=== PATIENT | female | born 1965 | race Caucasian/White ===

== ENCOUNTER 2019-10-26 21:54 | Observation (INO) | payer BC ==
[~2019-10-26] VITALS: Ht 157.5 cm; Wt 76.7 kg
[2019-10-26 22:01] VITALS: BP 137/78
[2019-10-26 22:24] LABS: ABSOLUTE BASOPHILS 0.1 thou/uL (0.0-0.2); ABSOLUTE EOSINOPHILS 0.7 thou/uL (0.0-0.7); ABSOLUTE MONOCYTES 0.6 thou/uL (0.0-1.2); ABSOLUTE NEUTROPHILS 7.5 thou/uL (1.6-8.1); BASOPHILS 0.7 %; EOSINOPHILS 6.6 %; HEMOGLOBIN 13.2 gm/dL (12.0-15.0); LYMPHOCYTES 18.2 %; MCH 31.8 pg (26.0-34.0); MCHC 34.7 g/dL (28.0-37.0); MCV 91.7 fL (80.0-100.0); MONOCYTES 5.3 %; MPV 7.7 fl. (7.2-11.1); NUCLEATED RBCS 0 /100WBC; PLATELET COUNT* 398 thou/uL (150-400); POLYS 69.2 %; RBC 4.15 mil/uL (4.20-5.00); RDW-CV 13.3 % (10.5-14.5); WBC 10.8 thou/uL (4.0-11.0)
[2019-10-26 22:29] LABS: CALCIUM 8.5 mg/dL (8.5-10.1); CREATININE 0.8 mg/dL (0.6-1.3); POTASSIUM 3.6 mmol/L (3.5-5.1)
[2019-10-26 22:32] LABS: PROTIME 10.7 Seconds (9.20-11.50)
[2019-10-26 22:35] LABS: ALBUMIN 3.1 g/dL (3.4-5.0); TOTAL BILIRUBIN 0.2 mg/dL (<0.1-1.0); TOTAL PROTEIN 6.2 g/dL (6.4-8.2)
[2019-10-27] VITALS (15 sets, daily range): BP systolic 118–147; BP diastolic 45–86
[2019-10-27] MEDS ORDERED: CLARITIN10 M3 PO (05:38)
[2019-10-27] MEDS ORDERED: ADVIL200 M1 PO (05:39)
[2019-10-27] MEDS ORDERED: IBUPROFEN 200200 M1 PO (05:40)
[2019-10-27] MEDS ORDERED: [UNRECOGNIZED DRUG - OTHER] (05:40)
[2019-10-27 08:54] LABS: CHOLESTEROL 170 mg/dL (<200); HDL CHOLESTEROL 41 mg/dL (>40); LDL CHOLESTEROL 108 mg/dL (<100); SERUM ASSESSMENT Clear; TC:HDL 4.1 Ratio (Not establshd); TRIGLYCERIDE 107 mg/dL (<150); VLDL 21 mg/dL (<40)
--- NOTE | 2019-10-27 15:59 | 2DMMODE ---
[facility] [address] [place] [address] 2 D/M-MODE ECHOCARDIOGRAM Name: RIVER COLLADO Room: [address] M.R.#: [id number] Admission: 10/26/19 Attend Phys: Williams Parker, Discharge: Date of : 67 Date of Service: 10/27/19 1558 Report #: [id number] THIS REPORT FOR: cc: FAM - No family physician/PCP FAM - No family physician/PCP Keagan Soriano MD [facility] ~ APPROVED REPORT Study performed: 10/27/2019 13:24:00 EXAM: Comprehensive 2D, Doppler, and color-flow Echocardiogram Patient Location: In-Patient BSA: 1.78 HR: 51 bpm BP: 147/73 mmHg Other Information Study Quality: Fair Technically limited study due to inability to position patient. Indications Non STEMI Chest Pain Volumes Left Atrial Volume (Systole) LA ESV Index: 18.70 mL/m2 Left Ventricle The left ventricle is normal size. There is normal LV segmental wall motion. Mild to moderate concentric left ventricular hypertrophy. Left ventricular systolic function is normal. The left ventricular ejection fraction is within the normal range. LVEF is 55-60%. Right Ventricle The right ventricle is normal size. The right ventricular systolic function is normal. Atria Left atrium is mildly dilated. The right atrium size is normal. [facility] [address] [place] [address] 2 D/M-MODE ECHOCARDIOGRAM Name: RIVER COLLADO Room: [address]#: [id number] Admission: 10/26/19 Attend Phys: Williams Parker, Discharge: Date of : 67 Date of Service: 10/27/19 1558 Report #: [id number] Aortic Valve The aortic valve is normal in structure. No aortic regurgitation is present. There is no aortic valvular stenosis. Mitral Valve The mitral valve is normal in structure. Mild mitral regurgitation. No evidence of mitral valve stenosis. Tricuspid Valve The tricuspid valve is normal in structure. There is no tricuspid valve regurgitation noted. Pulmonic Valve The pulmonary valve is normal in structure. There is no pulmonic valvular regurgitation. Great Vessels The aortic root is normal in size. IVC is normal in size and collapses >50% with inspiration. Pericardium There is no pericardial effusion. <Conclusion> The left ventricle is normal size. Mild to moderate concentric left ventricular hypertrophy. Left ventricular systolic function is normal. The left ventricular ejection fraction is within the normal range. LVEF is 55-60%. The right ventricle is normal size. Left atrium is mildly dilated. The right atrium size is normal. The aortic valve is normal in structure. The mitral valve is normal in structure. Mild mitral regurgitation. The tricuspid valve is normal in structure. IVC is normal in size and collapses >50% with inspiration. There is no pericardial effusion. There is normal LV segmental wall motion. <ELECTRONICALLY SIGNED> By: Keagan Soriano MD, [facility] 10/27/19 1558 1558 1558 Keagan Soriano MD, FACC /INF
--- NOTE | 2019-10-27 19:18 | EKG ---
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
--- NOTE | 2019-10-27 19:18 | EKG ---
[place] [address] ELECTROCARDIOGRAM REPORT Name: RIVER COLLADO Room: [address]#: [id number] Admission: 10/26/19 Attend Phys: Williams Parker, Discharge: Date of : 67 Date of Service: 10/26/192200 Report #: [id number] THIS REPORT FOR: //name// [facility] ED Test Date: 2019-10-26 Test Time: 22:01:04 Pat Name: RIVER COLLADO Department: Room: 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 : 1965 Requested By: Karen Clifton Order Number: [id number] MD: Rajiv Gil Measurements Intervals [place] Rate: 59 P: 17 IA: 118 QRS: 2 QRSD: 76 T: -19 QT: 402 QTc: 399 Interpretive Statements Sinus rhythm Borderline short IA interval Low voltage, precordial leads Abnormal R-wave progression, late transition Nonspecific T abnormalities, diffuse leads No previous ECG available for comparison Electronically Signed On 10-27-2019 17:42:12 CDT by Rajiv Gil [email or web address] <ELECTRONICALLY SIGNED> By: Rajiv Gil MD, FAC 10/27/19 174 00 00 Rajiv Gil MD, FAC /EPI
[2019-10-28] VITALS: BP 132/76
[2019-10-28 02:06] LABS: GLYCOHEMOGLOBIN (HGB A1C) 6.1 % (4.8-5.6)
[2019-10-28 04:00] VITALS: BP 146/47
[2019-10-28 04:45] LABS: HEMATOCRIT 34.5 % (37.0-47.0); HEMOGLOBIN 12.1 gm/dL (12.0-15.0); MCH 32.3 pg (26.0-34.0); MCV 92.1 fL (80.0-100.0); MPV 7.7 fl. (7.2-11.1); RBC 3.74 mil/uL (4.20-5.00); RDW-CV 13.4 % (10.5-14.5); WBC 7.4 thou/uL (4.0-11.0)
[2019-10-28 04:51] LABS: ALBUMIN 2.8 g/dL (3.4-5.0); CALCIUM 7.8 mg/dL (8.5-10.1); CREATININE 0.6 mg/dL (0.6-1.3); MAGNESIUM 1.8 mg/dL (1.8-2.4); POTASSIUM 3.4 mmol/L (3.5-5.1); TOTAL BILIRUBIN 0.4 mg/dL (<0.1-1.0); TOTAL PROTEIN 5.5 g/dL (6.4-8.2)
[2019-10-28 05:04] LABS: TROPONIN-I LEVEL 13.21 ng/mL (<0.06)
[2019-10-28] MEDS ORDERED: ASPIRIN325 PO (07:37)
[2019-10-28] MEDS ORDERED: NITROGLYCERIN0.4 MG SUBLING (07:37)
[2019-10-28] MEDS ORDERED: LIPITOR 40 MG T40 M1 PO (07:37)
[2019-10-28] MEDS ORDERED: EFFIENT10 MG PO (07:37)
[2019-10-28 08:00] VITALS: BP 136/75
[2019-10-28] MEDS ORDERED: WELLBUTRIN SR100 MG PO (12:06)
[2019-10-28 12:07] VITALS: BP 164/77
[2019-10-28] MEDS ORDERED: ASPIR 8181 M1 PO (13:02)
[2019-10-28 13:28] VITALS: BP 147/73
--- NOTE | 2019-10-29 08:35 | EKG ---
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: : 1965 Requested By: Rajiv Gil Order Number: [id number] Reading MD: Rajiv Gil Measurements Intervals [place] Rate: 48 P: 37 [place]: 133 QRS: 25 QRSD: 53 T: -43 QT: 377 QTc: 337 Interpretive Statements Sinus bradycardia Ventricular premature complex Artifact in lead(s) I,II,III,aVR,aVL,aVF,V1,V2,V3,V4,V5,V6 Compared to ECG 10/27/2019 10:30:45 Ventricular premature complex(es) now present Myocardial infarct finding now present Electronically Signed On 10-29-2019 8:34:52 CDT by Rajiv Gil [email or web address] <ELECTRONICALLY SIGNED> By: Rajiv Gil MD, [facility] 10/29/19 0834 1358 1358 Rajiv Gil MD, [facility] /EPI
--- NOTE | 2019-10-29 08:57 | EKG ---
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 : 1965 Requested By: Rajiv Gil Order Number: [id number] Reading MD: Rajiv Gil Measurements Intervals [place] Rate: 51 P: 56 [place]: 123 QRS: 16 QRSD: 88 T: 46 QT: 444 QTc: 409 Interpretive Statements Sinus rhythm Compared to ECG 10/27/2019 13:58:38 Sinus bradycardia no longer present Ventricular premature complex(es) no longer present Myocardial infarct finding no longer present Electronically Signed On 10-29-2019 8:56:21 CDT by Rajiv Gil [email or web address] <ELECTRONICALLY SIGNED> By: Rajiv Gil MD, [facility] 10/29/19 0856 9 Rajiv Gil MD, [facility] /EPI
--- NOTE | 2019-10-29 11:03 | CARD ---
[facility] [address] [place] [address] CARDIAC CATH REPORT Name: RIVER COLLADO Wiliam Room: [address] Marla M.RSaqib#: [id number] Admission: 10/26/19 Attend Phys: Williams Parker MD Discharge: 10/28/19 Date of : 67 Report #: [id number] THIS REPORT FOR: //name// cc: KIMMY - No family physician/PCP FAM - No family physician/PCP ~ APPROVED REPORT Study performed: 10/27/2019 10:14:56 Patient Details Patient Status: In-Patient Room #: The patient is a 54 year-old female Event Personnel Rajiv Gil Tire Room Supervisor, Keagan Soriano Tool Honing Machine Set Up Operator, Joan Gregg RN RN, Williams Popeub, Mar Anderson RTR Monitor, Madeline To RTR Monitor Procedures Performed Art Access - R femoral artery, Left Heart Cath w/or w/o Coronaries LHC, DENISE Place w/wo Plasty Single OM , DENISE Place w/wo Plasty Single LAD , Hemostasis w/ Angioseal Indication Non-STEMI Risk Factors Hypercholesterolemia, Hypertension Admission/Lab Medications/Medications given during procedure Angiomax IV 11 ml, Angiomax Drip IV 26.86 ml per hr, Effient PO 60 mg Procedure Narrative The patient was brought urgently to the Cardiac Catheterization Laboratory and was prepped and draped in a sterile manner. The right femoral was infiltrated with 1% Lidocaine subcutaneous anesthesia. A 6F [place] sheath was inserted into the right femoral artery. Coronary angiography was performed using coronary diagnostic catheters. The right coronary system was accessed and visualized with a 6F JR4 catheter. The left coronary system was accessed and visualized with a 6F JL4 catheter. The left ventricle was accessed and visualized with a 6F Pigtail catheter. Left ventricular/Aortic Valve gradient assessed via catheter pullback. Left ventriculogram was performed in [place]CE projection. Pre-dem[place] [address] CARDIAC CATH REPORT Name: RIVER COLLADO Room: [address] M..#: [id number] Admission: 10/26/19 Attend Phys: Williams Parker MD Discharge: 10/28/19 Date of : 67 Report #: [id number] was performed . Closure device was deployed with a 6 Fr Angioseal STS. The patient tolerated the procedure well and there were no complications associated with the procedure. There was no hematoma. Intraoperative Conscious Sedation Sedation start time: 11:29 Case end Time: 12:20 Fentanyl 50 mcg Versed 2 mg Fluoro Time: 17.3 minutes Dose: DAP 130378 cGycm2 2435 mGy Contrast Type and Amount: Visipaque 390 ml Coronary Angiography The patient's coronary anatomy is right dominant. Diagnostic Cath Left Main 0% narrowing LAD 80% tubular proximal and mid LAD stenoses Circumflex 40% mid circumflex narrowing with 100% occlusion of the first marginal branch of the circumflex with prominent intraluminal thrombus noted Right Coronary Large dominant vessel with 30% proximal narrowing Left Ventriculography The left ventricle is normal in size with normal contractility. The left ventricular ejection fraction is estimated to be 60%. Left ventricular wall motion abnormalities are not present. There is no mitral insufficiency. Hemodynamics The aortic pressure is 135/61 mmHg with a mean of 90 mmHg. The left ventricular pressure is 134/6 mmHg with a mean of mmHg. The left ventricular end diastolic pressure is 12 mmHg. PCI Technique Lesion Anticoagulation was achieved with Angiomax. Patient was preloaded with Angiomax IV 11 ml. Percutaneous coronary intervention was performed on the first obtuse marginal branch segment. The lesion stenosis prior to intervention was 100% with ELINA 0 flow. A 6F XB LAD 3.5 Guide Catheter was used to engage the lm ostium. A BMW 190cm Interventional Guidewire was used to cross the lesion[place] [address] CARDIAC CATH REPORT Name: RIVER COLLADO Room: [address] Eileen#: [id number] Admission: 10/26/19 Attend Phys: Williams Parker MD Discharge: 10/28/19 Date of : 67 Report #: [id number] A Balloon catheter Mini Trek RX 2.0 X 12 was inserted and inflated up to 8.00atm for 6seconds. Additional Inflation: 8.00atm for 6seconds. Additional Inflation: 8.00atm for 6seconds. STENT DEPLOYMENT A drug-eluting stent [place] RX Stent 2.0X26mm was inserted and inflated up to 12.00atm for 6seconds. Additional Inflation: 12.00atm for 6seconds. Final angiography reveals 5 % stenosis with ELINA 3 flow. PCI Technique Lesion 2 Percutaneous Coronary Intervention was performed on the mid left anterior descending artery segment. Patient was preloaded with Angiomax IV 11 ml. The lesion stenosis prior to intervention was 80% with ELINA 3 flow. A 6F XB LAD 3.5 Guide Catheter was used to engage the lm ostium. A BMW 190cm Interventional Guidewire was used to cross the lesion. Balloon Dilation A Balloon catheter Euphora SC 2.5x15mm was inserted and inflated up to 10.00atm for 10seconds. Additional Inflation: 10.00atm for 5seconds. Additional Inflation: 10.00atm for 7seconds. Stent Deployment A drug-eluting stent [place] RX Stent 2.5X18mm was inserted and inflated up to 12.00atm for 5seconds. Additional Inflation: 12.00atm for 6seconds. Final angiography reveals 0 % stenosis with ELINA 3 flow. PCI Technique Lesion 3 Percutaneous Coronary Intervention was performed on the proximal left anterior descending artery segment. Patient was preloaded with Angiomax IV 11 ml. The lesion stenosis prior to intervention was 80% with ELINA 3 flow. A 6F XB LAD 3.5 Guide Catheter was used to engage the lm ostium. A BMW 190cm Interventional Guidewire was used to cross the lesion. Stent Deployment A drug-eluting stent [place] RX Stent 2.5X18mm was inserted and inflated up to 12.00atm for 9seconds. Additional Inflation: 15.00atm for 10seconds. Post Stent Deployment Balloon Dilation A Balloon catheter [place] Euphora 2.75x8 was inserted and inflated up to [facility] [address] [place] [address] CARDIAC CATH REPORT Name: RIVER COLLADO Room: [address] Marla Arellano#: [id number] Admission: 10/26/19 Attend Phys: Williams Parker MD Discharge: 10/28/19 Date of : 67 Report #: [id number] 22.00atm for 8seconds. Additional Inflation: 24.00atm for 9seconds. Additional Inflation: 26.00atm for 11seconds. Final angiography reveals 0 % stenosis with ELINA 3 flow. Conclusion 1. Significant coronary artery disease characterized by the following: A 80% tubular proximal and mid LAD stenosis B 40% narrowing narrowing of the midportion of the nondominant circumflex with 100% first marginal occlusion with prominent intraluminal thrombus C 30% narrowing the proximal portion of the large dominant right coronary artery 2. Normal left ventricular systolic function, estimated ejection fraction being 60% 3. Normal left-sided hemodynamic study 4. Successful PCI at the site of 100% first marginal occlusion with 0% residual narrowing and ELINA-3 flow to the distal vessel 5. Successful PCI with deployment of sequential drug-eluting stents at the sites of 80% tubular proximal and mid LAD stenosis with 0% residual narrowings and ELINA-3 flow to the distal vessel Recommendations Cardiac Risk Reduction Program Aggressive Medical Therapy Medications Administered Aspirin (any) Prasugrel Diagnostic Cath Approved by: Rajiv Gil MD Date/Time: 10/29/2019 11:00:58 <ELECTRONICALLY SIGNED> By: Keagan Soriano MD, [facility] 10/29/19 1102 1102 1102Joellen Soriano MD, FACC /INF
== END 2019-10-28 13:29 | disposition home or self-care (01) ==
LOC: M.ERS 21:54 → M.2W 23:12 → M.TBA-ER 23:12 → M.2W 10-27 00:16
PROVIDERS: Internal Medicine; Personal Emergency Response Attendant; ADMIT Internal Medicine; ATTEND Internal Medicine
DX: I21.4 Non-ST elevation (NSTEMI) myocardial infarction (principal); I25.110 Atherosclerotic heart disease of native coronary artery with unstable angina pectoris; E78.5 Hyperlipidemia, unspecified; E11.9 Type 2 diabetes mellitus without complications; F17.210 Nicotine dependence, cigarettes, uncomplicated; R65.10 Systemic inflammatory response syndrome (SIRS) of non-infectious origin without acute organ dysfunction

== ENCOUNTER 2020-02-21 20:29 | Observation (INO) | payer BC ==
[~2020-02-21] VITALS: Ht 157.5 cm; Wt 84.4 kg
[~2020-02-21 20:29] MED LIST: ADVIL200 M1 PO; ASPIR 8181 M1 PO; ASPIRIN325 PO; CLARITIN10 M3 PO; EFFIENT10 MG PO; IBUPROFEN 200200 M1 PO; LIPITOR 40 MG T40 M1 PO; NITROGLYCERIN0.4 MG SUBLING; WELLBUTRIN SR100 MG PO; [UNRECOGNIZED DRUG - OTHER]
[2020-02-21 20:34] VITALS: BP 144/72
[2020-02-21] MEDS ORDERED: ZYRTEC10 M2 PO (20:39)
[2020-02-21 20:56] LABS: ABSOLUTE BASOPHILS 0.2 thou/uL (0.0-0.2); ABSOLUTE EOSINOPHILS 0.4 thou/uL (0.0-0.7); ABSOLUTE LYMPHOCYTES 2.4 thou/uL (0.8-5.3); ABSOLUTE MONOCYTES 0.5 thou/uL (0.0-1.2); ABSOLUTE NEUTROPHILS 4.3 thou/uL (1.6-8.1); EOSINOPHILS 5.1 %; HEMATOCRIT 34.5 % (37.0-47.0); HEMOGLOBIN 11.8 gm/dL (12.0-15.0); LYMPHOCYTES 30.7 %; MCH 31.5 pg (26.0-34.0); MCHC 34.3 g/dL (28.0-37.0); MCV 91.7 fL (80.0-100.0); MONOCYTES 6.8 %; MPV 7.6 fl. (7.2-11.1); NUCLEATED RBCS 0 /100WBC; PLATELET COUNT* 295 thou/uL (150-400); POLYS 54.4 %; RBC 3.77 mil/uL (4.20-5.00); WBC 7.9 thou/uL (4.0-11.0)
[2020-02-21 21:04] LABS: CALCIUM 8.6 mg/dL (8.5-10.1); CREATININE 0.9 mg/dL (0.6-1.3); POTASSIUM 3.5 mmol/L (3.5-5.1)
[2020-02-21 21:09] LABS: APTT 25.4 Seconds (25.0-31.3); INR 1.2
[2020-02-21 21:15] LABS: ALBUMIN 3.2 g/dL (3.4-5.0); TOTAL BILIRUBIN 0.3 mg/dL (<0.1-1.0); TOTAL PROTEIN 6.5 g/dL (6.4-8.2)
[2020-02-21 23:49] VITALS: BP 126/82
[2020-02-22 00:30] VITALS: BP 140/96
[2020-02-22 04:00] VITALS: BP 105/61; BP 122/63
[2020-02-22 07:30] VITALS: BP 112/60
--- NOTE | 2020-02-22 09:54 | EKG ---
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
[2020-02-22 11:59] VITALS: BP 136/78
--- NOTE | 2020-02-22 14:36 | CON ---
[facility] [address] [place] [address] CONSULTATION Name: RIVER COLLADO Wiliam Room: [address] Marla Arellano#: [id number] Admission: 02/21/20 Attend Phys: George Serrato, Discharge: Date of : 67 Report #: [id number] THIS REPORT FOR: //name// cc: Manuel Figueredo MD, Anthony MD ~ THIS REPORT FOR: //name// DATE OF SERVICE: 02/22/2020 CARDIOLOGY CONSULTATION HISTORY OF PRESENT ILLNESS: The patient is a 54-year-old single white female who I was asked to see in the hospital after she complained of chest pain. The patient initially presented in October of this year with chest pain. Heart catheterization from the femoral artery showed an occluded marginal branch of the circumflex. She apparently had 3 drug-eluting stents placed at that time. She has been followed by my partner, Dr. Gil. She also had a drug-eluting stent placed in the LAD. Dr. Gil actually just saw her in the clinic 3 weeks ago. She was placed on a beta-william at that time. She did go to cardiac rehabilitation. She has had chest pain off and on since that time. Yesterday, she was at home, cooking when she felt lightheaded and her heart was beating fast. She also noticed some discomfort in her chest, felt short of breath, nauseated, had a headache. Her boyfriend brought her to the Emergency Room and she was admitted for further evaluation and treatment. She denied the pain being related to the food or activity. She denied any trauma to her chest or rash. She has had no vomiting, fever or cough. She has had no edema. She has had no syncope. PAST MEDICAL AND SURGICAL HISTORY: She has had ear surgery in the past. She has a history of obesity. She is 5 feet 2, previously weighed 260 pounds. She apparently had gastric sleeve surgery in the past. She has had a hysterectomy. She has a history of hypertension, GLUCOSE INTOLERANCE, hyperlipidemia. MEDICATIONS: Include aspirin, Lipitor, Effient, Zoloft, recently started on a beta-william. ALLERGIES: SHE HAS PREVIOUS INTOLERANCE TO MORPHINE. FAMILY HISTORY: Her mother had heart problems. SOCIAL HISTORY: She is single, lives with a boyfriend in [place]. 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 She quit smoking in August. Rarely drinks alcohol. No illicit drug use. REVIEW OF SYSTEMS: She has had no history of stroke. She has a history of sleep apnea, no longer uses CPAP. No history of asthma, liver disease, [place] [id number] CONSULTATION Name: RIVER COLLADO Room: [address] Marla MMindy#: [id number] Admission: 02/21/20 Attend Phys: George Serrato, Discharge: Date of : 67 Report #: [id number] disease. She apparently had cervical cancer before her hysterectomy. No history of psychiatric illness. No chronic skin condition. PHYSICAL EXAMINATION: GENERAL: Revealed a middle-aged female, lying in bed. She appeared in no distress. VITAL SIGNS: She had a blood pressure of 120/80, pulse is 60. HEENT: She is anicteric. Conjunctivae are pink. Mucous membranes moist. NECK: Veins do not appear distended. No carotid bruits. CHEST: Clear to auscultation. CARDIAC: Regular rate and rhythm. ABDOMEN: Obese. EXTREMITIES: Had no edema. Posterior tibial pulse 2+ bilaterally. SKIN: Warm and dry. NEUROLOGIC: Nonfocal. RADIOLOGICAL DATA: Her ECG showed a sinus rhythm. There was no significant ST or T-wave change noted. Her workup showed she had an echocardiogram in October at the time of her myocardial infarction that showed an ejection fraction of 60%. Her x-rays last night showed she had a portable chest x-ray, normal heart size and clear lung ramirez. She actually had a CT scan of the chest using a PE protocol that showed normal heart size and clear lung ramirez. LABORATORY DATA: Sodium 141, BUN 16. Troponins all 0.06. Her white blood cell count is 7.9, hemoglobin 11.8. IMPRESSION AND RECOMMENDATIONS: 1. Chest pain. The patient had stents placed in the circumflex and left anterior descending 4 months ago. Recommend stress echocardiogram. 2. Palpitations. I would consider sending the patient home with a environmental monitoring specialist. 3. History of obesity with previous gastric sleeve. 4. GLUCOSE INTOLERANCE. 5. Hyperlipidemia. The patient is on a statin drug. 6. Tobacco abuse. The patient no longer smokes. <ELECTRONICALLY SIGNED> By: Gio Vu MD, [facility] 02/22/20 1436 0931 [id number] Vu MD, FACC /nt
[2020-02-22 15:56] VITALS: BP 136/78
[2020-02-22 16:33] VITALS: BP 136/78
--- NOTE | 2020-02-22 16:45 | EXE ---
[place] [address] STRESS ECHOCARDIOGRAM Name: RIVER COLLADO Wiliam Room: [address] MSaqibRSaqib#: [id number] Admission: 02/21/20 Attend Phys: George Cruz Discharge: Date of : 67 Date of Service: 02/22/20 1644 Report #: [id number] THIS REPORT FOR: cc: Manuel Figueredo MD, Anthony MD Blick,Gio Santos MD [facility] ~ APPROVED REPORT Study performed: 02/22/2020 15:36:55 Exam: Dobutamine Stress Echo Indication: Chest pain , Dyspnea , Dizziness, Palpitations Patient Location: In-Patient Stress Nurse: Darby Sweet RN Room #: 223 Supervising Physician: Gio Vu MD Ht: 5 ft 2 in HR: 60 bpm BP: 129/72 mmHg Medical History Medical History: [place], PCI,CAD Cardiac Risk Factors: HTN, DM, Hyperlipidemia, Tobacco History (Former) Procedure The patient underwent a Pharmacological Stress Test using Dobutamine. Blood pressure, heart rate, and EKG were monitored. An Echocardiogram was performed by nuclear technician in four stages in quad fashion. At peak stress, four selected images were obtained and placed side by side with resting images for comparison. Stress Test Details Stress Test: Pharmacological Stress Test using Dobutamine. Reason for pharmacologic stress test: physical limitation. HR Resting HR: 60 bpm Max Heart Rate (APMHR): 167 bpm Max HR Achieved: 152 bpm Target HR (85% APMHR): 141 bpm % of APMHR: 91 Recovery HR: 85 bpm HR response to stress: Normal [place] [address] STRESS ECHOCARDIOGRAM Name: COLLADORIVER HIDALGO Wiliam Room: [address]#: [id number] Admission: 02/21/20 Attend Phys: George Cruz Discharge: Date of : 67 Date of Service: 02/22/20 1644 Report #: [id number] [id number] BP: 129/72 mmHg Max BP: 207/67 mmHg Recovery BP: 168/73 mmHg BP response to stress: Normal blood pressure response to stress. ECG Resting ECG: Sinus Rhythm Stress ECG: Sinus Rhythm, nonspecific ST-T abnormalities ST Change: Upsloping ST depression Maximum ST Deviation: 1 mm Arrhythmia: VPC's Recovery ECG: Sinus Rhythm Recovery ST Change: Normal Recovery ST Deviation: 0 mm Recovery Arrhythmia: VPC Clinical Reason for Termination: Completed protocol Pre-Stress Echo The resting Echocardiogram showed normal left ventricular contractility with an estimated Ejection Fraction of about 55-60%. Post-Stress Echo The stress Echocardiogram showed normal left ventricular contractility with an estimated Ejection Fraction of about 65-70%. Compared to rest, there were no stress-induced wall motion abnormalities. Conclusion Clinical Response: Non-ischemic Stress ECG Response: Equivocal Stress Echo Images: Non-ischemic low risk dobutamine stress echo for predicting future cardiac events Other Information Study Quality: Good <Conclusion> low risk dobutamine stress echo for predicting future cardiac events <ELECTRONICALLY SIGNED> By: Gio Vu MD, [facility] 02/22/20 1644 43 43 Gio Vu MD, FACC /INF
== END 2020-02-22 18:17 | disposition home or self-care (01) ==
LOC: M.ERS 20:29 → M.TBA-ER 22:40 → M.2W 22:40
PROVIDERS: Personal Emergency Response Attendant; ADMIT Family Medicine; ATTEND Family Medicine
DX: R07.89 Other chest pain (principal); R00.2 Palpitations; I25.10 Atherosclerotic heart disease of native coronary artery without angina pectoris; E11.9 Type 2 diabetes mellitus without complications; E66.9 Obesity, unspecified; Z68.34 Body mass index [BMI] 34.0-34.9, adult; F17.290 Nicotine dependence, other tobacco product, uncomplicated; Z79.899 Other long term (current) drug therapy; Z20.828 Contact with and (suspected) exposure to other viral communicable diseases; Z95.818 Presence of other cardiac implants and grafts

== ENCOUNTER → 2020-04-20 | Outpatient (CLI) | payer BC ==
[~2020-04-20] MED LIST changes: +ZYRTEC10 M2 PO
[2020-04-20 14:36] LABS: ALBUMIN 3.4 g/dL (3.4-5.0); ALKALINE PHOSPHATASE 81 U/L (46-116); ANION GAP 12 mmol/L (7-16); BUN 11 mg/dL (7-18); CALCIUM 8.7 mg/dL (8.5-10.1); CHLORIDE 105 mmol/L (98-107); CHOLESTEROL 160 mg/dL (<200); CO2 25 mmol/L (21-32); CREATININE 0.6 mg/dL (0.6-1.3); GLUCOSE 146 mg/dL (70-99); HDL CHOLESTEROL 48 mg/dL (>40); LDL CHOLESTEROL 70 mg/dL (<100); NT-PRO BRAIN NAT PEPTIDE 101 pg/mL (<300); POTASSIUM 3.9 mmol/L (3.5-5.1); SGOT 16 U/L (15-37); SGPT 36 U/L (30-65); SODIUM 142 mmol/L (136-145); TC:HDL 3.3 Ratio (Not establshd); TOTAL BILIRUBIN 0.2 mg/dL (<0.1-1.0); TOTAL PROTEIN 6.7 g/dL (6.4-8.2); TRIGLYCERIDE 211 mg/dL (<150); VLDL 42 mg/dL (<40)
[2020-04-20 14:42] LABS: SERUM ASSESSMENT Clear
== END ==
LOC: M.ULTRA 12:24
PROVIDERS: ATTEND Nurse Practitioner
DX: R00.2 Palpitations (principal); R06.02 Shortness of breath; M79.661 Pain in right lower leg; E78.2 Mixed hyperlipidemia; I10 Essential (primary) hypertension; R60.9 Edema, unspecified

== ENCOUNTER 2020-10-27 16:54 | Emergency (ER) | payer OTHER ==
[~2020-10-27] VITALS: Ht 157.5 cm; Wt 81.7 kg
[2020-10-27] MEDS ORDERED: HORMONE CREAM (17:06)
[2020-10-27 18:07] LABS: ABSOLUTE EOSINOPHILS 0.4 thou/uL (0.0-0.7); ABSOLUTE LYMPHOCYTES 2.6 thou/uL (0.8-5.3); ABSOLUTE MONOCYTES 0.6 thou/uL (0.0-1.2); ABSOLUTE NEUTROPHILS 5.6 thou/uL (1.6-8.1); BASOPHILS 0.3 %; EOSINOPHILS 4.8 %; HEMATOCRIT 39.8 % (37.0-47.0); HEMOGLOBIN 13.8 gm/dL (12.0-15.0); LYMPHOCYTES 28.1 %; MCH 31.7 pg (26.0-34.0); MCHC 34.6 g/dL (28.0-37.0); MCV 91.6 fL (80.0-100.0); MONOCYTES 6.6 %; MPV 7.2 fl. (7.2-11.1); NUCLEATED RBCS 0 /100WBC; PLATELET COUNT* 396 thou/uL (150-400); POLYS 60.2 %; RBC 4.35 mil/uL (4.20-5.00); RDW-CV 13.7 % (10.5-14.5); WBC 9.2 thou/uL (4.0-11.0)
[2020-10-27 18:17] LABS: CALCIUM 8.6 mg/dL (8.5-10.1); CREATININE 0.6 mg/dL (0.6-1.3); POTASSIUM 3.9 mmol/L (3.5-5.1)
[2020-10-27 18:22] LABS: ALBUMIN 3.2 g/dL (3.4-5.0); TOTAL BILIRUBIN 0.2 mg/dL (<0.1-1.0); TOTAL PROTEIN 6.6 g/dL (6.4-8.2)
[2020-10-27] MEDS ORDERED: CEPHALEXIN500 MG PO (18:51)
[2020-10-27 18:59] VITALS: BP 115/73
--- NOTE | 2020-10-28 10:52 | EKG ---
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: : 1965 Requested By: Butch Snyder Order Number: [id number] MD: Keagan Soriano Measurements Intervals [place] Rate: 78 P: 46 [place]: 129 QRS: 10 QRSD: 78 T: 21 QT: 385 QTc: 439 Interpretive Statements Sinus rhythm Atrial premature complexes Low voltage, precordial leads Compared to ECG 02/21/2020 20:33:20 Atrial premature complex(es) now present Low QRS voltage now present Electronically Signed On 10-28-2020 10:52:38 CDT by Keagan Soriano [email or web address] <ELECTRONICALLY SIGNED> By: Keagan Soriano MD, [facility] 10/28/20 1052 1805 1805 Keagan Soriano MD, [facility] /EPI
== END 2020-10-27 18:59 | disposition home or self-care (01) ==
LOC: M.ERS 16:54
PROVIDERS: Physician Assistant
DX: R60.0 Localized edema (principal); R60.9 Edema, unspecified; E11.9 Type 2 diabetes mellitus without complications; Z88.1 Allergy status to other antibiotic agents; Z90.710 Acquired absence of both cervix and uterus; Z95.5 Presence of coronary angioplasty implant and graft

== ENCOUNTER 2021-02-07 20:15 | Observation (INO) | payer OTHER ==
[~2021-02-07] VITALS: Ht 157.5 cm; Wt 84.8 kg
[~2021-02-07 20:15] MED LIST changes: -ASPIR 8181 M1 PO; +CEPHALEXIN500 MG PO; +HORMONE CREAM; +ST. JOSEPH ASPI81 MG PO
[2021-02-07 20:19] VITALS: BP 139/83
[2021-02-07 21:11] LABS: ABSOLUTE BASOPHILS 0.1 thou/uL (0.0-0.2); ABSOLUTE EOSINOPHILS 0.3 thou/uL (0.0-0.7); ABSOLUTE MONOCYTES 0.6 thou/uL (0.0-1.2); ABSOLUTE NEUTROPHILS 5.3 thou/uL (1.6-8.1); BASOPHILS 1.3 %; EOSINOPHILS 3.8 %; HEMATOCRIT 38.7 % (37.0-47.0); HEMOGLOBIN 13.3 gm/dL (12.0-15.0); LYMPHOCYTES 24.6 %; MCH 31.2 pg (26.0-34.0); MCHC 34.3 g/dL (28.0-37.0); MONOCYTES 7.1 %; MPV 7.6 fl. (7.2-11.1); NUCLEATED RBCS 0 /100WBC; PLATELET COUNT* 371 thou/uL (150-400); POLYS 63.2 %; RBC 4.25 mil/uL (4.20-5.00); RDW-CV 13.2 % (10.5-14.5); WBC 8.3 thou/uL (4.0-11.0)
[2021-02-07 21:20] LABS: CALCIUM 8.9 mg/dL (8.5-10.1); CREATININE 0.7 mg/dL (0.6-1.3)
[2021-02-07 21:25] LABS: PROTIME 10.5 Seconds (9.20-11.50)
[2021-02-07 21:31] LABS: ALBUMIN 3.5 g/dL (3.4-5.0); TOTAL BILIRUBIN 0.3 mg/dL (<0.1-1.0); TOTAL PROTEIN 6.6 g/dL (6.4-8.2)
[2021-02-08 02:45] VITALS: BP 125/64
[2021-02-08 03:10] VITALS: BP 111/56
[2021-02-08] MEDS ORDERED: OZEMPIC0.25 MG/0. SUBQ (03:37)
[2021-02-08] MEDS ORDERED: LIPITOR40 MG PO (07:44)
[2021-02-08] MEDS ORDERED: EFFIENT10 MG PO (07:45)
[2021-02-08] MEDS ORDERED: NITROSTAT0.4 M1 SUBLING (07:45)
[2021-02-08 08:00] VITALS: BP 114/64
[2021-02-08 12:05] VITALS: BP 111/64
[2021-02-08 12:49] VITALS: BP 111/64
--- NOTE | 2021-02-08 14:44 | EKG ---
[place] [address] ELECTROCARDIOGRAM REPORT Name: RIVER COLLADO Room: [address]#: [id number] Admission: 02/08/21 Attend Phys: Dawson Daniels, Discharge: 02/08/21 Date of : 67 Date of Service: 02/07/212014 Report #: [id number] THIS REPORT FOR: //name// [facility] ED Test Date: 2021-02-07 Test Time: 20:15:10 Pat Name: RIVER COLLADO Department: Room: [facility] Gender: F Database Tester: MICHELLE : 1965 Requested By: Karen Clifton Order Number: [id number] MD: Keagan Soriano Measurements Intervals [place] Rate: 86 P: 51 [place]: 139 QRS: 8 QRSD: 76 T: 21 QT: 356 QTc: 426 Interpretive Statements Sinus rhythm Atrial premature complexes Compared to ECG 10/27/2020 18:05:19 No significant changes Electronically Signed On 02-08-2021 14:44:29 CDT by Keagan Soriano [email or web address] <ELECTRONICALLY SIGNED> By: Keagan Soriano MD, FAC 02/08/21 1444 14 14 Keagan Soriano MD, [facility] /EPI
--- NOTE | 2021-02-08 14:46 | EKG ---
[place] [address] ELECTROCARDIOGRAM REPORT Name: RIVER COLLADO Room: [address]#: [id number] Admission: 02/08/21 Attend Phys: Dawson Daniels, Discharge: 02/08/21 Date of : 67 Date of Service: 02/08/21 0159 Report #: [id number] THIS REPORT FOR: //name// [facility] ED Test Date: 2021-02-08 Test Time: 01:59:39 Pat Name: RIVER COLLADO Department: Room: [facility] Gender: F Sales Developer: DANA : 1965 Requested By: Karen Clifton Order Number: [id number] MD: Keagan Soriano Measurements Intervals [place] Rate: 67 P: 48 [place]: 138 QRS: 11 QRSD: 82 T: 30 QT: 415 QTc: 438 Interpretive Statements Sinus rhythm Atrial premature complex Baseline wander in lead(s) V3 Compared to ECG 02/07/2021 20:15:10 No significant changes Electronically Signed On 02-08-2021 14:46:41 CDT by Keagan Soriano [email or web address] <ELECTRONICALLY SIGNED> By: Keagan Soriano MD, FACC 02/08/21 1446 0159 0159 Keagan Soriano MD, FACC /EPI
== END 2021-02-08 13:20 | disposition home or self-care (01) ==
LOC: M.ERS 20:15 → M.2W 02-08 01:58 → M.TBA-ER 02-08 01:58 → M.2W 02-08 02:54
PROVIDERS: Personal Emergency Response Attendant; ADMIT Internal Medicine; ATTEND Internal Medicine
DX: R10.13 Epigastric pain (principal); I25.10 Atherosclerotic heart disease of native coronary artery without angina pectoris; Z20.822 Contact with and (suspected) exposure to COVID-19; I10 Essential (primary) hypertension; E78.5 Hyperlipidemia, unspecified; K59.00 Constipation, unspecified; I65.21 Occlusion and stenosis of right carotid artery; F17.210 Nicotine dependence, cigarettes, uncomplicated; Z79.899 Other long term (current) drug therapy; Z79.82 Long term (current) use of aspirin